=== PATIENT | male | born 1980 | race Caucasian/White ===

== ENCOUNTER 2017-08-11 08:06 | Emergency (ER) | payer SELFPAY | END 2017-08-11 08:26 | disposition left against medical advice (07) | LOC: ED 08:06 | DX: T75.89XA Other specified effects of external causes, initial encounter (principal); Z53.21 Procedure and treatment not carried out due to patient leaving prior to being seen by health care provider; X58.XXXA Exposure to other specified factors, initial encounter; Y93.89 Activity, other specified; Y99.8 Other external cause status; Y92.89 Other specified places as the place of occurrence of the external cause ==